=== PATIENT | male | born 1980 | race Caucasian/White ===

== ENCOUNTER 2017-03-28 21:46 | Emergency (ER) | payer SELFPAY ==
[~2017-03-28] VITALS: Ht 167.6 cm; Wt 81.6 kg
[2017-03-28 21:55] VITALS: BP 125/76
--- NOTE | 2017-03-28 22:01 | NUR ---
BIBA TO ER OF1
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
--- NOTE | 2017-03-28 22:37 | NUR ---
PATIENT [facility] [employer]. PATIENT EXAMINED BY DR. HILLMAN. PATIENT MEDICALLY CLEARED AND RELEASED IN CUSTODY IN STABLE CONDITION. ORIGINAL PRE-BOOK FORM GIVEN TO OFFICER MICAH.
[2017-03-28 22:38] VITALS: BP 125/76
== END 2017-03-28 22:38 ==
LOC: MED 21:46
DX: Z02.89 Encounter for other administrative examinations (principal)
CPT/HCPCS: 99283